=== PATIENT | female | born 1990 | race Caucasian/White ===

== ENCOUNTER 2020-08-24 09:04 | Outpatient (CLI) | payer OTHER ==
--- NOTE | 2020-08-24 11:16 | MRI Report ---
PROCEDURE: Brain W/O INDICATIONS: HEADACHE, DYSEQUILIBRIUM, FAM HX OF ANEURYSM TECHNIQUE: Noncontrast axial T1 spin echo, axial T2 fast spin echo, sagittal and axial FLAIR, coronal T2 fast sp in echo, axial gradient echo, axial diffusion and ADC through the brain. COMPARISON: None. FINDINGS: Image quality: Excellent. CSF Spaces: Basal cisterns are patent. No extra-axial fluid collections. Ventricles are normal in size and shape. Brain: No intracranial masses or hemorrhage. [place]/white matter interface is normal. Brainstem appe ars normal. Diffusion-weighted images demonstrate no acute ischemic insult. No chronic ischemic ins ults. Normal intravascular flow voids are present. Skull and face: Calvarium has normal marrow signal. Orbits appear normal. Sinuses: Sinuses and mastoids are clear. IMPRESSION: Normal for age, no evidence of aneurysm or intracranial chronic hemorrhage. The brain parenchyma appe ars free of mass lesion or inflammation. Source of current symptoms is not found. Reviewed by: Harsh Beatty MD on 08/24/2020 11:14 AM PST Approved by: Harsh Beatty MD on 08/24/2020 11:14 AM PST Station ID: [id number]
== END 2020-08-24 09:05 | disposition home or self-care (01) ==
LOC: DI 09:04
PROVIDERS: ATTEND Family Medicine
DX: R51.9 Headache, unspecified (principal); Z82.49 Family history of ischemic heart disease and other diseases of the circulatory system

== ENCOUNTER 2022-05-01 11:35 | Emergency (ER) | payer OTHER ==
--- NOTE | 2022-05-01 12:52 | XRAY Report ---
PROCEDURE: Ribs w/PA Chest RT INDICATIONS: trauma TECHNIQUE: 2 views of the right ribs were acquired, along with a single view chest. COMPARISON: None FINDINGS: Surgical changes and devices: None. Bones and chest wall: No fractures or dislocations. No suspicious bony lesions. Overlying soft tis sues appear unremarkable. Lungs and pleura: No pleural effusions or pneumothorax. Lungs appear clear. Mediastinum: Mediastinal contours appear normal. Heart size is normal. IMPRESSION: No acute cardiopulmonary findings No evidence of right-sided rib fracture Reviewed by: Bryce Sigala MD on 05/01/2022 11:51 AM [place] Approved by: Bryce Sigala MD on 05/01/2022 11:51 AM [place] Station ID: [id number]
[2022-05-01] MEDS ORDERED: LIDOCAINE PATCH 5% TOP STA (15:19)
[2022-05-01] MEDS ORDERED: IBUPROFEN 600 MG TABLET PO STA (15:19)
--- NOTE | 2022-05-01 15:22 | ED Physician Documentation ---
History of Present Illness - Stated complaint Stated Complaint: SOA, R RIB PX - Chief complaint Chief Complaint: Trauma Ch/Bk - History obtained from History obtained from: Patient - Additonal information Additional information: Pt is 31 yo presenting for evaluation of R sided rib pain that started this morning at work after lifting oysters. She denies fall or other known trauma. Pt reports sharp pain that is worse with movements and deep breath. Pain does not radiate. She has not taken anything for pain. No fever, cough, abdominal pain, concern for . Review of Systems Constitutional: denies: Fever Cardiac: reports: Chest pain / pressure Respiratory: denies: Dyspnea GI: denies: Abdominal Pain Musculoskeletal: denies: Extremity pain PD PAST MEDICAL HISTORY - Present Medications Home Medications: Ambulatory Orders Medication Instructions Recorded Confirmed Lidocaine Patch 5% [Lidoderm Patch] 1 patch TOP DAILY PRN #10 patch 05/01/22 Oxycodone HCl/Acetaminophen 1 each PO Q6H PRN #8 tablet 05/01/22 [Percocet 5-325 mg Tablet] - Allergies Allergies/Adverse Reactions: Allergies Allergy/AdvReac Type Severity Reaction Status Date / Time Penicillins Allergy Unknown Verified 05/01/22 11:46 PD ED PE NORMAL - General General: Alert and oriented X 3, No acute distress, Well developed/nourished - HEENT HEENT: Atraumatic - Neck Neck: Supple, no meningeal sign, No bony TTP - Cardiac Cardiac: RRR, No murmur, Strong equal pulses, Other (R sided chest wall TTP; no crepitus/bruising/paradoxical movement) - Respiratory Respiratory: No respiratory distress, Clear bilaterally, Other - Abdomen Abdomen: Soft, Non tender, Non distended - Back Back: No spinal TTP - Derm Derm: Warm and dry - Extremities Extremities: No edema Results - Vitals Vitals: Vital Signs - 24 hr 05/01/22 05/01/22 11:43 15:34 Temperature 36.7 C Heart Rate 81 69 Respiratory 24 16 Rate Blood Pressure 152/97 H 129/85 H O2 Saturation 98 100 Oxygen O2 Source Room air PD MEDICAL DECISION MAKING - ED course Complexity details: reviewed results, re-evaluated patient ED course: Pt with R sided chest wall pain after lifting heavy oysters. VSS. Xray negative for rib fracture or pneumothorax. Pt has reproducible tenderness. Discussed symptom management as well as concerning symptoms to return for. Departure - Departure Disposition: 01 Home, Self Care Clinical Impression: Chest wall muscle strain Qualifiers: Encounter type: initial encounter Qualified Code(s): S29.011A - Strain of muscle and tendon of front wall of thorax, initial encounter Condition: Stable Instructions: ED Contusion Rib Prescriptions: Lidocaine Patch 5% [Lidoderm Patch] 1 patch TOP DAILY PRN #10 patch PRN Reason: pain Oxycodone HCl/Acetaminophen [Percocet 5-325 mg Tablet] 1 each PO Q6H PRN #8 tablet PRN Reason: pain Comments: You were evaluated for right-sided rib pain after an injury at work. Your x-ray is clear and do not see signs of a broken rib or collapsed lung. You could have a bruise to the rib or a strain to the muscle in your chest wall. I sent prescriptions for pain medication and lidocaine patches to [facility] in [place].Please rest and ice the area. I would expect this to get better over the course of the next few days with rest and anti-inflammatory such as ibuprofen. Please return to the ER with any worsening symptoms such as increased shortness of breath or worsening pain. I am prescribing a short course of narcotic pain medication for you. These are potentially dangerous and addictive medications that should be used carefully. These medications may constipate you. Take an [id number] stool softener (docusate) twice daily with plenty of water while taking these medications. If you go 24 hours without a bowel movement, take [id number] miralax, per package instructions. Do not drink or drive while taking these medications. If you received narcotic or sedating medications while in the emergency department, do not drive for 24 hours. Store this medication in a safe, secure place and out of reach of children. It is a violation of federal law to give or sell this medication to another person or to use in a manner other than prescribed. The ED will not refill narcotic prescriptions, including prescriptions lost or stolen. To dispose of unwanted medications: 1. [facility] at [address] in [place] has a medication drop box. They accept prescription medications (in pill form) Sunday through Sunday 9:00 a.m. to 5:00 p.m. 2. The [facility] [employer] accepts prescription medications (in pill form only) for disposal year round. Call for more information. 3. Contact the [facility] for the next [facility] sponsored prescription drug collection event. , [phone], or [phone]; Note that many narcotic pain relievers also contain Tylenol/acetaminophen. Please ensure that your total dose of acetaminophen from all sources does not exceed 3 g (3000 mg) per day. Forms: Activity restrictions Discharge Date/Time: 05/01/22 15:34
[2022-05-01 15:35] VITALS: BP 129/85
== END 2022-05-01 15:34 | disposition home or self-care (01) ==
LOC: ED 11:35
DX: S29.011A Strain of muscle and tendon of front wall of thorax, initial encounter (principal); X50.0XXA Overexertion from strenuous movement or load, initial encounter
CPT/HCPCS: 71101; 99282; 99283; A9270

== ENCOUNTER 2022-12-30 01:07 | Emergency (ER) | payer OTHER ==
[2022-12-30] MEDS ORDERED: SODIUM CHLORIDE 0.9% 1,000 ML IV STA (01:29)
[2022-12-30] MEDS ORDERED: KETOROLAC 15 MG/ML VIAL IVP STA (01:29)
[2022-12-30] MEDS ORDERED: ONDANSETRON 4 MG/2 ML VIAL IVP STA (01:29)
--- NOTE | 2022-12-30 01:34 | ED Physician Documentation ---
History of Present Illness - Stated complaint Stated Complaint: ABD PX - Chief complaint Chief Complaint: Abd Pain - History obtained from History obtained from: Patient - Additonal information Additional information: 32-year-old woman, with past medical history of kidney stones, presents with right lower abdominal pain for the past 2 days, radiating to the flank. Also with dysuria and increased frequency for the past couple days. Patient's LMP was 2 weeks ago but she states she has been spotting today. denies fever, vomiting, diarrhea. +nausea Review of Systems Constitutional: denies: Fever GI: reports: Abdominal Pain, Nausea. denies: Vomiting, Diarrhea : reports: Dysuria, Frequency, Vaginal bleeding PD PAST MEDICAL HISTORY - Present Medications Home Medications: Ambulatory Orders Medication Instructions Recorded Confirmed Lidocaine Patch 5% [Lidoderm Patch] 1 patch TOP DAILY PRN #10 patch 05/01/22 Oxycodone HCl/Acetaminophen 1 each PO Q6H PRN #8 tablet 05/01/22 [Percocet 5-325 mg Tablet] Cefpodoxime Proxetil [Vantin] 200 mg PO Q12H #28 tablet 12/30/22 - Allergies Allergies/Adverse Reactions: Allergies Allergy/AdvReac Type Severity Reaction Status Date / Time Penicillins Allergy Unknown Verified 05/01/22 11:46 PD ED PE NORMAL - Vitals Vital signs reviewed: Yes - General General: Alert and oriented X 3, No acute distress, Well developed/nourished - HEENT HEENT: Atraumatic, PERRL, EOMI - Neck Neck: Supple, no meningeal sign - Cardiac Cardiac: RRR - Respiratory Respiratory: No respiratory distress, Clear bilaterally - Abdomen Abdomen: Other (RLQ ttp with rebound tenderness. no guarding. suprapubic discomfort with palpation) - Derm Derm: Normal color, Warm and dry Results - Vitals Vitals: Vital Signs - 24 hr 12/30/22 12/30/22 01:16 03:18 Temperature 36.7 C Heart Rate 81 86 Respiratory 16 16 Rate Blood Pressure 121/79 108/63 O2 Saturation 99 98 Oxygen O2 Source Room air - Labs Labs: Laboratory Tests 12/30/22 12/30/22 12/30/22 01:38 01:38 01:38 WBC 13.3 H RBC 4.31 Hgb 13.9 Hct 41.4 MCV 96.1 MCH 32.3 H MCHC 33.6 RDW 12.9 Plt Count 284 MPV 11.0 H Neut # (Auto) 10.5 H Lymph # (Auto) 1.6 [place] # (Auto) 0.8 Eos # (Auto) 0.3 Baso # (Auto) 0.0 Absolute Nucleated RBC 0.00 Nucleated RBC % 0.0 Sodium 139 Potassium 3.6 Chloride 106 Carbon Dioxide 26 Anion Gap 7.0 BUN 16 Creatinine 0.6 Estimated GFR (MDRD) 117 Glucose 148 H Calcium 8.8 Total Bilirubin 0.7 AST 17 ALT 19 Alkaline Phosphatase 59 Total Protein 7.3 Albumin 4.1 Globulin 3.2 Albumin/Globulin Ratio 1.3 Lipase 35 HCG, Quant < 0.60 Urine Color Urine Clarity Urine pH Ur Specific [place] Urine Protein Urine Glucose (UA) Urine Ketones Urine Occult Blood Urine Nitrite Urine Bilirubin Urine Urobilinogen Ur Leukocyte Esterase Urine RBC Urine WBC Ur Squamous Epith Cells Urine Bacteria Urine Mucus Urine Culture Comments 12/30/22 02:14 WBC RBC Hgb Hct MCV MCH MCHC RDW Plt Count MPV Neut # (Auto) Lymph # (Auto) [place] # (Auto) Eos # (Auto) Baso # (Auto) Absolute Nucleated RBC Nucleated RBC % Sodium Potassium Chloride Carbon Dioxide Anion Gap BUN Creatinine Estimated GFR (MDRD) Glucose Calcium Total Bilirubin AST ALT Alkaline Phosphatase Total Protein Albumin Globulin Albumin/Globulin Ratio Lipase HCG, Quant Urine Color YELLOW Urine Clarity CLOUDY Urine pH 7.0 Ur Specific [place] 1.015 Urine Protein 30 H Urine Glucose (UA) NEGATIVE Urine Ketones NEGATIVE Urine Occult Blood MODERATE H Urine Nitrite POSITIVE H Urine Bilirubin NEGATIVE Urine Urobilinogen 0.2 (NORMAL) Ur Leukocyte Esterase LARGE H Urine RBC 11-25 H Urine WBC >25 H Ur Squamous Epith Cells FEW Squamous Urine Bacteria Moderate H Urine Mucus Moderate Strands Urine Culture Comments INDICATED PD Medical Decision Making - ED course ED course: 32yF p/w RLQ pain, possible DDX includes menstrual cramping, uti, kidney stone, appendicitis, ovarian torsion, ectopic . Torsion unlikely given protracted constant symptoms that are mid-tier severity. plan to obtain cbc, abdominal panel, u/a, hcg, and provide IVF, IV toradol, IV zofran for symptom management. will reevaluate for need for possible further imaging. CBC shows leukocytosis and abdominal panel was unremarkable. hcg negative. note patient has uti on u/a. She states she was told she had an allergic reaction as a baby to penicillin and thinks that she does fine with other antibiotics. We will attempt to give Rocephin and monitor. We will also obtain CT to evaluate for kidney stones and appendicitis. CT CT uncovered only urinary tract infection per my interpretation and that of outside radiologist. Discussed with patient and provided antibiotics. She seems to be tolerating the Rocephin fine therefore we will prescribe Vantin to her pharmacy. Return precautions given. Plan to follow-up with primary care provider. Departure - Departure Disposition: Home, Self Care Clinical Impression: Abdominal pain, UTI (urinary tract infection) Condition: Good Instructions: ED UTI Cystitis Female Prescriptions: Cefpodoxime Proxetil [Vantin] 200 mg PO Q12H #28 tablet Comments: You were seen in the emergency department for UTI. Please take your antibiotics as prescribed. We will call you if you need any adjustment in your antibiotics. Return to the emergency department for new or worsening symptoms or concerns.Call to follow-up with your primary doctor. Electronic prescription for Vantin was sent to [facility] in [place].
[2022-12-30 01:48] LABS: BASOPHILS % (AUTO) 0.3 %; EOSINOPHILS # (AUTO) 0.3 10^3/uL (0.0-0.7); EOSINOPHILS % (AUTO) 1.9 %; HCT - HEMATOCRIT 41.4 % (37.0-47.0); HGB - HEMOGLOBIN 13.9 g/dL (12.0-16.0); LYMPHOCYTES # (AUTO) 1.6 10^3/uL (1.5-3.5); LYMPHOCYTES % (AUTO) 12.1 %; MEAN CORPUSCULAR HEMOGLOBIN 32.3 pg (27.0-31.0); MEAN CORPUSCULAR HGB CONC 33.6 g/dL (32.0-36.0); MEAN CORPUSCULAR VOLUME 96.1 fL (81.0-99.0); MONOCYTES # (AUTO) 0.8 10^3/uL (0.0-1.0); NEUTROPHILS # (AUTO) 10.5 10^3/uL (1.5-6.6); NEUTROPHILS % (AUTO) 79.5 %; PLT - PLATELET COUNT 284 10^3/uL (130-450); RED BLOOD COUNT 4.31 10^6/uL (4.20-5.40); RED CELL DISTRIBUTION WIDTH 12.9 % (12.0-15.0); WHITE BLOOD COUNT 13.3 x10^3/uL (4.8-10.8)
[2022-12-30 02:02] LABS: ALBUMIN 4.1 g/dL (3.2-5.5); ALBUMIN/GLOBULIN RATIO 1.3 (1.0-2.2); BILIRUBIN,TOTAL 0.7 mg/dL (0.2-1.0); CALCIUM 8.8 mg/dL (8.5-10.3); CREATININE 0.6 mg/dL (0.4-1.0); POTASSIUM 3.6 mmol/L (3.5-5.0); TOTAL PROTEIN 7.3 g/dL (6.7-8.2)
[2022-12-30 02:23] LABS: BILIRUBIN,URINE NEGATIVE (NEGATIVE); GLUCOSE, URINE (UA) NEGATIVE (NEGATIVE); KETONES,URINE (UA) NEGATIVE (NEGATIVE); LEUKOCYTE ESTERASE, URINE LARGE (NEGATIVE); NITRITE,URINE POSITIVE (NEGATIVE); OCCULT BLOOD,URINE MODERATE (NEGATIVE); PROTEIN,URINE 30 mg/dL (NEGATIVE); UROBILINOGEN,URINE 0.2 (NORMAL) E.U./dL (NORMAL)
[2022-12-30 02:31] LABS: CLARITY,URINE CLOUDY (CLEAR)
[2022-12-30 02:32] LABS: BACTERIA,URINE Moderate /HPF (None Seen); MUCUS,URINE Moderate Strands; SQUAMOUS EPITHELIAL CELL,UR FEW Squamous (<= Few); WBC,URINE >25 /HPF (0-5)
[2022-12-30] MEDS ORDERED: cefTRIAXone 1 GM in SODIUM CHLORIDE 0.9% MINIBAG 100 ML IV STA (02:50)
[2022-12-30] MEDS ORDERED: iohexoL-300 100 ML VIAL ONE (03:00)
[2022-12-30] MEDS ORDERED: cefTRIAXone 1 GM VIAL ONE (03:06)
[2022-12-30] MEDS ORDERED: iohexoL-300 100 ML VIAL IVP ONE (03:33)
[2022-12-30 04:45] VITALS: BP 99/68
--- NOTE | 2022-12-30 08:58 | CT Report ---
PROCEDURE: ABDOMEN/PELVIS W INDICATIONS: RLQ pain, leukocytosis, hx kid stones CONTRAST: 100 ML OMNI 300 TECHNIQUE: After the administration of IV contrast, 5 mm thick sections acquired from the diaphragms to the symp hysis. 5 mm thick coronal and sagittal reformats were acquired. For radiation dose reduction, the f ollowing was used: automated exposure control, adjustment of mA and/or kV according to patient size. COMPARISON: None FINDINGS: Image quality: Excellent. Lung bases and heart: Unremarkable. Liver: Normal. Gallbladder and biliary tree: Decompressed gallbladder. Normal biliary tree. Spleen: Normal Pancreas: Normal Adrenals: No adrenal nodule. Kidneys and ureters: No intrarenal calcification or hydronephrosis. No renal cystic lesion which requ ires follow up. No solid mass. No ureteral calculi. Bowel and peritoneum: No bowel distension. No pathologic free fluid. Normal appendix. Lymph nodes: No central or retroperitoneal adenopathy. Vessels: No infrarenal aortic aneurysm. PELVIS Reproductive organs: Anteverted uterus is normal. Ovaries are not well seen. Bladder: The urinary bladder is partially decompressed. The wall is diffusely thickened and the seros al surface demonstrates mild inflammatory changes. The mucosal surface is moderately hyperemic. No st ones are visible. Pelvic lymph nodes: No pelvic adenopathy by size criteria. Bones: No aggressive osseous abnormality. Other: No significant ventral or inguinal hernia. IMPRESSION: 1. Findings suggestive of cystitis. 2. No evidence of urinary calcification or obstructive uropathy. 3. Final interpretation concordant with preliminary report. Reviewed by: Shahana Avendaño MD on 12/30/2022 7:57 AM [place] Approved by: Shahana Avendaño MD on 12/30/2022 7:57 AM [place]CARLOS Station ID: [id number]
== END 2022-12-30 04:45 | disposition home or self-care (01) ==
LOC: ED 01:07
DX: N39.0 Urinary tract infection, site not specified (principal)
CPT/HCPCS: 36415; 74177; 80053; 81001; 83690; 84702; 85025; 87086; 87181; 96365; 96375; 99284; Q9967; 81025

== ENCOUNTER 2023-03-29 17:59 | Emergency (ER) | payer MEDICAID, OTHER ==
[2023-03-29 18:12] VITALS: O2SAT 100
[2023-03-29 18:50] LABS: BASOPHILS # (AUTO) 0.1 10^3/uL (0.0-0.1); BASOPHILS % (AUTO) 0.5 %; EOSINOPHILS # (AUTO) 0.6 10^3/uL (0.0-0.7); HCT - HEMATOCRIT 38.4 % (37.0-47.0); HGB - HEMOGLOBIN 12.9 g/dL (12.0-16.0); LYMPHOCYTES # (AUTO) 2.3 10^3/uL (1.5-3.5); LYMPHOCYTES % (AUTO) 18.8 %; MEAN CORPUSCULAR HEMOGLOBIN 32.3 pg (27.0-31.0); MEAN CORPUSCULAR HGB CONC 33.6 g/dL (32.0-36.0); MEAN CORPUSCULAR VOLUME 96.2 fL (81.0-99.0); MEAN PLATELET VOLUME 11.1 fL (7.9-10.8); MONOCYTES # (AUTO) 0.6 10^3/uL (0.0-1.0); NEUTROPHILS # (AUTO) 8.5 10^3/uL (1.5-6.6); NEUTROPHILS % (AUTO) 70.4 %; PLT - PLATELET COUNT 264 10^3/uL (130-450); RED BLOOD COUNT 3.99 10^6/uL (4.20-5.40); RED CELL DISTRIBUTION WIDTH 13.1 % (12.0-15.0); WHITE BLOOD COUNT 12.1 x10^3/uL (4.8-10.8)
[2023-03-29 19:07] LABS: ALBUMIN 4.1 g/dL (3.2-5.5); ALBUMIN/GLOBULIN RATIO 1.6 (1.0-2.2); BILIRUBIN,TOTAL 0.5 mg/dL (0.2-1.0); CALCIUM 9.1 mg/dL (8.5-10.3); CREATININE 0.6 mg/dL (0.6-1.3); POTASSIUM 3.3 mmol/L (3.5-4.5); TOTAL PROTEIN 6.7 g/dL (6.4-8.9)
[2023-03-29] MEDS ORDERED: iohexoL-300 100 ML VIAL IVP ONE (19:49)
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
[2023-03-29 21:13] VITALS: BP 115/76
== END 2023-03-29 21:07 | disposition home or self-care (01) ==
LOC: ED 17:59
DX: T71.9XXA Asphyxiation due to unspecified cause, initial encounter (principal); Y04.2XXA Assault by strike against or bumped into by another person, initial encounter; F17.200 Nicotine dependence, unspecified, uncomplicated; Z79.899 Other long term (current) drug therapy
CPT/HCPCS: 36415; 70498; 80053; 85025; 99283; 99284; Q9967